=== PATIENT | female | born 1995 | race African-American/Black ===

== ENCOUNTER 2017-04-04 16:23 | Emergency (ER) | payer SELFPAY | END 2017-04-04 17:29 | disposition home or self-care (01) | LOC: MADERS 16:23 | DX: S16.1XXA Strain of muscle, fascia and tendon at neck level, initial encounter (principal); S10.93XA Contusion of unspecified part of neck, initial encounter; V89.2XXA Person injured in unspecified motor-vehicle accident, traffic, initial encounter | CPT/HCPCS: 99283 ==

== ENCOUNTER 2017-09-04 20:34 | Emergency (ER) | payer SELFPAY ==
[2017-09-04] MEDS ORDERED: Ibuprofen 600 MG TAB ONE (21:42)
[2017-09-04 21:45] LABS: Bacteria/HPF Rare-Few HPF (None Seen); Bilirubin Negative (Negative); Blood, Urine Negative (Negative); Clarity Hazy (Clear); Glucose, Urine (Dipstick) Negative (Negative); Leukocyte Negative (Negative); Nitrite Negative (Negative); Protein, Urine (Dipstick) 30 mg/dL (Neg-Trace); RBC/HPF None Seen HPF (0-3); Specific Gravity, Urine 1.025 (1.005-1.030); WBC/HPF 0-3 HPF (0-3); pH, Urine 6.5 (5.0-9.0)
[2017-09-04 21:46] LABS: Crystals/HPF 2+ AMORPH URATES HPF (Negative)
[2017-09-04 21:47] LABS: Pregnancy Test - Urine (BHCG) Negative (Negative); Specific Gravity 1.025 (1.002-1.036)
[2017-09-04 21:48] LABS: Pregu Control Background? CLEAR/WHITE (CLR/WHITE); Pregu Control Bar Appear? YES (CONTROL BAR)
[2017-09-04] MEDS ORDERED: Sulfameth/Trimethoprim DS 800-160mg TAB ONE (22:04)
== END 2017-09-04 22:12 | disposition home or self-care (01) ==
LOC: MADERS 20:34
DX: N30.00 Acute cystitis without hematuria (principal)
CPT/HCPCS: 81003; 81015; 81025; 99283

== ENCOUNTER 2018-04-15 12:05 | Emergency (ER) | payer OTHER, SELFPAY ==
[2018-04-15 12:51] LABS: Bilirubin Negative (Negative); Blood, Urine Negative (Negative); Clarity Hazy (Clear); Glucose, Urine (Dipstick) Negative (Negative); Leukocyte Negative (Negative); Nitrite Negative (Negative); Protein, Urine (Dipstick) Negative (Neg-Trace); Urobilinogen 0.2 mg/dL (0.2-1.0)
[2018-04-15 12:52] LABS: Bacteria/HPF Rare-Few HPF (None Seen); Pregnancy Test - Urine (BHCG) Negative (Negative); RBC/HPF 0-3 HPF (0-3); WBC/HPF 0-3 HPF (0-3)
[2018-04-15 12:53] LABS: Pregu Control Background? CLEAR/WHITE (CLR/WHITE); Pregu Control Bar Appear? YES (CONTROL BAR)
== END 2018-04-15 13:10 | disposition home or self-care (01) ==
LOC: MADERS 12:05
DX: R30.0 Dysuria (principal); R10.32 Left lower quadrant pain
CPT/HCPCS: 81001; 81025; 87077; 87086; 99283

== ENCOUNTER 2018-06-08 14:14 | Emergency (ER) | payer OTHER ==
[2018-06-08] MEDS ORDERED: Ibuprofen 800 MG TAB ONE (14:45)
== END 2018-06-08 15:00 | disposition home or self-care (01) ==
LOC: MADERS 14:14
DX: G44.209 Tension-type headache, unspecified, not intractable (principal)
CPT/HCPCS: 99283

== ENCOUNTER 2019-10-30 08:15 | Emergency (ER) | payer OTHER | END 2019-10-30 08:37 | disposition home or self-care (01) | LOC: MADERS 08:15 | DX: M54.5 Low back pain (principal); E66.9 Obesity, unspecified; F17.210 Nicotine dependence, cigarettes, uncomplicated | CPT/HCPCS: 99281 ==

== ENCOUNTER 2022-10-08 17:55 | Emergency (ER) | payer OTHER ==
[2022-10-08] MEDS ORDERED: Ketorolac Tromethamine 60 MG/2 ML VIAL ONE (18:22)
== END 2022-10-08 18:46 | disposition home or self-care (01) ==
LOC: MADERS 17:55
DX: S16.1XXA Strain of muscle, fascia and tendon at neck level, initial encounter (principal); S39.012A Strain of muscle, fascia and tendon of lower back, initial encounter; F17.210 Nicotine dependence, cigarettes, uncomplicated; V29.608A Unspecified rider of other motorcycle injured in collision with unspecified motor vehicles in traffic accident, initial encounter
CPT/HCPCS: 70450; 72125; 72128; 72131; 96372; J1885

== ENCOUNTER 2023-06-01 08:32 | Emergency (ER) | payer OTHER | END 2023-06-01 09:10 | disposition home or self-care (01) | LOC: MADERS 08:32 | DX: O9A.213 Injury, poisoning and certain other consequences of external causes complicating pregnancy, third trimester (principal); S76.011A Strain of muscle, fascia and tendon of right hip, initial encounter; Z3A.31 31 weeks gestation of pregnancy; O99.333 Smoking (tobacco) complicating pregnancy, third trimester; F17.210 Nicotine dependence, cigarettes, uncomplicated; X50.1XXA Overexertion from prolonged static or awkward postures, initial encounter | CPT/HCPCS: 99283 ==